=== PATIENT | male | born 1985 | race Caucasian/White ===

== ENCOUNTER 2018-09-27 21:06 | Emergency (ER) ==
[2018-09-27 21:16] VITALS: BP 131/80; TEMP 98.5; BMI 24.6
[2018-09-27] MEDS ORDERED: EYE-STREAM OP STA (21:25)
[2018-09-27] MEDS ORDERED: TETRACAINE 0.5% UNIT-DOSE OP STA (21:26)
[2018-09-27] MEDS ORDERED: FUL-GLO OP STA (21:27)
[2018-09-27] MEDS ORDERED: NORCO 5-325 PO STA (21:57)
[2018-09-27] MEDS ORDERED: GENTAK OPTH OINT OP STA (21:58)
[2018-09-27] MEDS ORDERED: CIPRO 0.3% OPTH SOL OP ONE (22:08)
--- NOTE | 2018-09-27 22:08 | ED.PDOC ---
General ED Provider: Dr. ALEXANDRA BLOUNT Chief Complaint: Eye Problem Stated Complaint: had grease splash to the eyes at 5 pm at work. Had contact lenses. Took them off as soon as it happend but right came out in fragrements. Has photophobia and pain mostly on the right eye. Time Seen by Physician: 21:45 Mode of Arrival: Walk-In Information Source: Patient Exam Limitations: No limitations Nursing and Triage Documentation Reviewed and Agree: Yes Does patient meet sepsis criteria?: No System Inflammatory Response Syndrome: Not Applicable Sepsis Protocol: For patient's 13 years and over: Temp is 96.8 and below OR 101 and greater Pulse >90 BPM Resp >20/minute Acutely Altered Mental Status Are patient's symptoms suggestive of a new infection, such as: -Pneumonia -Skin, Soft Tissue -Endocarditis -UTI -Bone, Joint Infection -Implantable Device -Acute Abdominal Infection -Wound Infection -Meningitis -Blood Stream Catheter Infection -Unknown EENT Complaint Exam - Eye Complaint/Exam Symptoms Are: Still present Timing: Constant Initial Severity: Severe Current Severity: Moderate Location: Bilateral (worse on the right eye ) Character: Reports: Foreign body sensation Aggravating: Reports: Contact lens, Blinking Associated Signs and Symptoms: Reports: Photophobia, Clear drainage Related History: Reports: Foreign body Eye Surgical History: Reports: None Penetrating Injury Risk Factors: None Globe Rupture Risk Factors: None Acute Glaucoma Risk Factors: None Visual Acuity Right Eye: unable Visual Acuity Left Eye: Unable Lid Findings: Erythema (and abrassion with flurocine upatek) Conjunctival Findings: Red (on the right ) Corneal Findings: Clear Fluorescein Uptake: Yes (on the right lower eyelid ) Differential Diagnoses: Corneal Abrasion Review of Systems - Review Of Systems Constitutional: Reports: No symptoms Eyes: Reports: Pain, Photophobia, Contact lenses (but removed prior to arrival.) Ears, Nose, Mouth, Throat: Reports: No symptoms Respiratory: Reports: No symptoms Cardiac: Reports: No symptoms GI: Reports: No symptoms : Reports: No symptoms Musculoskeletal: Reports: No symptoms Skin: Reports: No symptoms Neurological: Reports: Anxiety Endocrine: Reports: No symptoms Hematologic/Lymphatic: Reports: No symptoms All Other Systems: Reviewed and Negative Past Medical History - Past Medical History Previously Healthy: Yes Endocrine: Reports: None Cardiovascular: Reports: None Respiratory: Reports: None Hematological: Reports: None Gastrointestinal: Reports: None Genitourinary: Reports: None Neuro/Psych: Reports: Anxiety, Depression Musculoskeletal: Reports: None Cancer: Reports: Breast - Surgical History General Surgical History: Reports: Other (breast surgery ) - Family History Family History: Reports: Unknown - Social History Smoking Status: Current every day smoker, Light tobacco smoker Hx Substance Use: No Alcohol Screening: Occasionally - Immunizations Tetanus Shot up to Date: Yes Physical Exam - Physical Exam Appearance: Ill-appearing Ill-appearing: Mild Pain Distress: Severe Eyes: Conjunctiva inflammed Skin: Warm, Dry Neurological: Alert, Oriented Psychiatric: Anxious Procedures - Eye Procedure Location of Foreign Body: bilateral Tetracaine Drops Administered: Yes (2 drops in each eye ) Eye FB Removal: Other (n/a) Foreign Body Completely Removed: No (none seen ) Eye Irrigated: Yes Critical Care Note - Critical Care Note Total Time (mins): 0 Course - Course Orders, Labs, Meds: Orders Category Date Time Status ED EYE IRRIGATION .ONCE EMERGENCY 09/27/18 21:26 Active Balanced Salt Solution [Eye-Stream] MEDS 09/27/18 21:25 Discontinued 1 bottle OP ONCE STA Fluorescein Sodium [Ful-Xenia] MEDS 09/27/18 21:27 Discontinued 1 strip OP ONCE STA Gentamicin Sulfate [Gentak Opth Oint] MEDS 09/27/18 21:58 Stat 1 applic OP ONCE STA Hydrocodone Bit/Acetaminophen [[place] 5-325] MEDS 09/27/18 21:57 Stat 1 tab PO ONCE STA Tetracaine HCl/Pf [Tetracaine 0.5% Unit-Dose] MEDS 09/27/18 21:26 Discontinued 2 drop OP ONCE STA Medications Discontinued Medications Generic Name Dose Route Start Last Admin Trade Name Huong PRN Reason Stop Dose Admin Eye Irrigation Solution 1 bottle 09/27/18 21:25 09/27/18 21:34 Eye-Stream OP 09/27/18 21:26 1 bottle ONCE STA Administration Fluorescein Sodium 1 strip 09/27/18 21:27 09/27/18 21:35 Ful-Xenia OP 09/27/18 21:28 1 strip ONCE STA Administration Tetracaine HCl 2 drop 09/27/18 21:26 09/27/18 21:35 Tetracaine 0.5% Unit-Dose OP 09/27/18 21:27 2 drop ONCE STA Administration Vital Signs: Temp Pulse Resp BP Pulse Ox 09/27/18 21:07 98.5 F 86 20 131/80 97 Departure - Departure Time of Disposition: 22:10 Disposition: HOME SELF-CARE Discharge Problem: Abrasion of right conjunctiva Qualifiers: Encounter type: initial encounter Qualified Code(s): S05.01XA - Injury of conjunctiva and corneal abrasion without foreign body, right eye, initial encounter Instructions: Eye Foreign Body (ED), Conjunctivitis (ED) Condition: Fair Pt referred to PMD for follow-up: Yes IPMP verified?: No Additional Instructions: Use ciprofloxacin Eye drops to the right eye every 4 hour for 10 days Follow up with the eye doctor in 1-2 days Return if worse. off work for 3 days Take Motrin as needed for pain. Prescriptions: Ibuprofen [Motrin] 600 mg PO Q6H PRN #20 tablet PRN Reason: Analgesia Allergies/Adverse Reactions: Allergies beeswax Adverse Reaction (Verified 09/27/18 21:16) Fish Containing Products Adverse Reaction (Verified 09/27/18 21:17) Difficulty Swallowing shellfish derived Adverse Reaction (Verified 09/27/18 21:17) Difficulty Swallowing Home Medications: Ambulatory Orders Ibuprofen [Motrin] 600 mg PO Q6H PRN #20 tablet 09/27/18 Disposition Discussed With: Patient, Family
[2018-09-27] MEDS ORDERED: CIPRO 0.3% OPTH SOL OP STA (22:32)
== END 2018-09-27 22:21 | disposition home or self-care (01) ==
LOC: ED 21:06
DX: S05.01XA Injury of conjunctiva and corneal abrasion without foreign body, right eye, initial encounter (principal); F17.210 Nicotine dependence, cigarettes, uncomplicated
CPT/HCPCS: 99283